=== PATIENT | female | born 1950 | race Asian ===

== ENCOUNTER → 2023-09-08 12:54 | Outpatient (REF) | payer MEDICARE, SELFPAY | LOC: MRI 3T 12:54 | PROVIDERS: ATTENDING PHYSICIAN Specialist; FAMILY PHYSICIAN Family Medicine | DX: M25.562 Pain in left knee (principal) | CPT/HCPCS: 73721 ==

== ENCOUNTER 2025-02-10 10:34 | Outpatient (RCR) | payer MEDICARE, SELFPAY | END 2025-02-10 23:59 | disposition home or self-care (01) | LOC: RPT 10:34 | PROVIDERS: ATTENDING PHYSICIAN Emergency Medicine | DX: R42 Dizziness and giddiness (principal); Z73.6 Limitation of activities due to disability; R26.89 Other abnormalities of gait and mobility | CPT/HCPCS: 97112; 97162 ==

== ENCOUNTER 2025-02-25 11:49 | Outpatient (RCR) | payer MEDICARE, SELFPAY | END 2025-02-25 23:59 | disposition home or self-care (01) | LOC: RPT 11:49 | PROVIDERS: ATTENDING PHYSICIAN Emergency Medicine | DX: R42 Dizziness and giddiness (principal); Z73.6 Limitation of activities due to disability; R26.89 Other abnormalities of gait and mobility | CPT/HCPCS: 97112 ==

== ENCOUNTER 2025-03-08 11:20 | Emergency (ER) | payer MEDICARE, SELFPAY ==
[2025-03-08 11:27] VITALS: BP 179/91
[2025-03-08 11:51] LABS: Hematocrit 41.8 % (37.0-47.0); Hemoglobin 13.7 g/dL (12.0-16.0); Mean Corp Hgb Conc. 32.8 g/dL (33.0-37.0); Mean Corpuscular Volume 85.3 fL (81.0-99.0); Nucleated Red Blood Cells % 0 %; Platelet Count 278 10^3/uL (130-400); Red Cell Dist. Width 12.8 % (11.5-14.5)
[2025-03-08 12:10] LABS: ALT (SGPT) 18 U/L (0-35); AST (SGOT) 25 U/L (14-36); Albumin 4.7 g/dl (3.5-5.0); Alkaline Phosphatase 53 U/L (38-126); Blood Urea Nitrogen 22 mg/dl (7-17); Calcium 10.1 mg/dl (8.4-10.2); Carbon Dioxide 30 mmol/L (22-30); Chloride 105 mmol/L (98-107); Glucose 176 mg/dl (70-99); Potassium 4.5 mmol/L (3.5-5.1); Sodium 142 mmol/L (135-145); Total Protein 7.9 g/dl (6.3-8.2); eGFR > 60.00
[2025-03-08 12:19] LABS: Troponin I < 0.012 ng/ml
[2025-03-08 13:15] VITALS: BP 153/82
[2025-03-08 14:13] VITALS: BMI 24.0
[2025-03-08 14:16] VITALS: BP 128/79
[2025-03-08 15:00] VITALS: BP 123/76
[2025-03-08 15:31] LABS: Troponin I < 0.012 ng/ml
--- NOTE | 2025-03-08 15:33 | ED.GENMED ---
History of Present Illness
General
Chief Complaint: Chest Pain
Source: patient
Time Seen by Provider: 03/08/25 13:20
History of Present Illness
History of Present Illness:
74-year-old female with past medical history of vertigo presents to the emergency department for evaluation after she was driving with her to wall off her coffee this morning when she felt a sensation in her throat/chest described to be
little bit tightening, lasting for 'a little while' but currently asymptomatic. No other symptoms were associated and patient states she has never had this before. She denies any fevers or recent illnesses, no shortness of breath, no diaphoresis,
no pleurisy or hemoptysis, no abdominal pain, nausea or vomiting. Patient did not take anything for her symptoms prior to arrival. She denies any known cardiac history. Social history and family history were noncontributory.
Past History
Past History
ED Past Medical History: None
ED Past Surgical History: None
Social History
Tobacco: Non-smoker
Alcohol: None
Drug: None
Personal:
Living: with family
Review of Systems
Review of Systems
All Other Systems: ROS reviewed and negative except as documented in HPI and ROS
Phy Exam
Physical Exam
Physical Exam:
GENERAL: Alert , in no apparent distress
EYE: conjunctiva clear
NECK: Supple
ENT: o/p clr, mmm.
CARDIAC: Regular rate and rhythm
LUNGS: Clear breath sounds bilaterally, no acute respiratory distress, no wheezes/rales/rhonchi
ABDOMEN: Soft, nontender, nondistended
NEUROLOGICAL: Alert and oriented
SKIN: Warm and dry, skin intact.
MUSCULOSKELETAL: well perfused.
PSYCH: Normal and appropriate interaction.
Scores
Heart Failure Risk
Heart Failure Risk Score: Not Applicable
Heart Score for Chest Pain Patients
STEMI patient?: No
History: Slightly or Non-Suspicious
ECG: Normal
Age: >/= 65 years
Risk Factors: No Risk Factors
Troponin: </= Normal Limit
Heart Score for Chest Pain Patients: 2
Heart Score Risk: 2.5% MACE over next 6 weeks
Withdrawal Assessment of Alcohol
Withdrawal Assessment Completed?: Not applicable
Course
Orders/Labs/Results
Orders:
Orders
03/08/25 11:30
Electrocardiogram (*1) Urgent
Reason for Study: Chest Pain
EKG- Treatment ONCE
03/08/25 11:40
Complete Blood Count/With Diff Urgent
Comprehensive Metabolic Panel Urgent
Troponin I Urgent
03/08/25 13:20
CR Chest - 2 Views Urgent
Comment:
Reason For Exam: chest pain
03/08/25 14:32
Troponin I Urgent
Abnormal Lab Results
03/08/25
11:40
MCHC 32.8 L g/dL
(33.0-37.0)
BUN 22 H mg/dl
(7-17)
Glucose 176 H mg/dl
(70-99)
03/08/25 11:40
03/08/25 11:40
Vital Signs
Initial and Last Documented VS:
Initial Vital Signs
Temp Pulse Resp BP Pulse Ox
97.9 F 74 18 179/91 98
03/08/25 11:27 03/08/25 11:27 03/08/25 11:27 03/08/25 11:27 03/08/25 11:27
Last Documented Vital Signs
Temp Pulse Resp BP Pulse Ox
97.9 F 68 17 123/76 98
03/08/25 11:27 03/08/25 15:00 03/08/25 15:00 03/08/25 15:00 03/08/25 15:34
MDM/Problems Addressed
Differential Diagnosis Includes:
ACS/angina
PE
Aneurysm/dissection
Pneumonia
Viral syndrome
Anxiety
Hypertension
MDM/Problems Addressed:
74-year-old female, otherwise healthy presenting to the ER for evaluation of abnormal sensation in her throat/upper chest. Asymptomatic at time of my exam. Labs were initiated in triage which are reassuring and a negative troponin/nonischemic EKG.
Given lack of risk factors will obtain a repeat troponin and as long as patient remains chest pain-free and a negative second troponin I do believe it would be reasonable for patient to be discharged home with close follow-up via the chest pain
hotline. Patient and significant other are both in agreement with this plan.
*Radiology
Radiology exam reviewed: preliminary read by ED provider (Normal chest x-ray)
*Pulse Oximetry
SaO2: 98
Oxygen Mode of Delivery: Room air
Patient hypoxic: no
*EKG
Heart Rate: 86
Rate: normal
Rhythm: sinus arrhythmia
Interval: short RI
Ischemia: no ischemia
*Sports Medicine Trainer Interpretation
Rate: normal
Rhythm: sinus
*Critical Care Note
Total Time (30-74mins, 75-104mins- exclusive of procedures): Not Applicable
Patient Management
Escalation/DeEscalation of care consider admission/obs:
Repeat troponin negative. Patient remains chest pain-free. Stable for discharge home. Aware of return precautions to the ER.
ED Attending Note
-
Portions of this chart may have been created with voice recognition software.� Occasional wrong word or��sound alike� substitutions may have occurred due to the inherent limitations of voice recognition software.
Discharge Plan
Departure
Patient Disposition: Home (Routine Discharge)
Date of Disposition: 03/08/25
Time of Disposition: 15:33
Patient with high blood pressure during this ER visit?: Yes
Discharge Problem:
Chest pain
Instructions: Chest Pain DCA Follow Up
Prescriptions:
No Action
therapeutic multivitamin Tablet
1 tab PO DAILY
multivitamin with minerals Tablet
1 tab PO DAILY
olive leaf extract 250 mg Capsule
250 mg PO DAILY
turmeric 400 mg Capsule
400 mg PO DAILY
Referrals:
Bernardino Preston DO [Family Provider, Family Practice]
Interventions
Interventions:
*Risk Screen - Suicide Last Done: 03/08/25 11:27
*General Assessment Last Done: 03/08/25 14:13
*ED- Fall Risk Assessment Last Done: 03/08/25 14:13
*ED COVID-19 Vaccine History Last Done: 03/08/25 14:13
ED- Cardiac Assessment Last Done: 03/08/25 14:13
Discharge Date and Time
Print Language: LATVIAN
== END 2025-03-08 16:03 | disposition home or self-care (01) ==
LOC: EMR 11:20
PROVIDERS: Emergency Medicine; Physician Assistant Medical; EMERGENCY PHYSICIAN Student in an Organized Health Care Education/Training Program; FAMILY PHYSICIAN Family Medicine
DX: R07.9 Chest pain, unspecified (principal)
CPT/HCPCS: 99284; 71046; 80053; 84484; 85025; 93005

== ENCOUNTER → 2025-03-31 11:29 | Outpatient (REF) | payer MEDICARE, SELFPAY | LOC: HWRCS 11:29 | PROVIDERS: ATTENDING PHYSICIAN Internal Medicine Cardiovascular Disease; FAMILY PHYSICIAN Family Medicine | DX: R07.9 Chest pain, unspecified (principal) | CPT/HCPCS: 78452; 93017; A9500; J2785 ==

== ENCOUNTER → 2025-04-01 14:42 | Outpatient (REF) | payer MEDICARE, SELFPAY | LOC: RCS 14:42 | PROVIDERS: ATTENDING PHYSICIAN Internal Medicine Cardiovascular Disease; FAMILY PHYSICIAN Family Medicine | DX: R06.09 Other forms of dyspnea (principal) | CPT/HCPCS: 93306 ==

== ENCOUNTER → 2025-06-25 13:16 | Outpatient (REF) | payer MEDICARE, SELFPAY | LOC: WDC 13:16 | PROVIDERS: ATTENDING PHYSICIAN Surgery; FAMILY PHYSICIAN Family Medicine | DX: Z12.31 Encounter for screening mammogram for malignant neoplasm of breast (principal) | CPT/HCPCS: 77063; 77067 ==

== ENCOUNTER → 2025-07-08 09:12 | Outpatient (REF) | payer MEDICARE, SELFPAY | LOC: WDC 09:12 | PROVIDERS: ATTENDING PHYSICIAN Surgery; FAMILY PHYSICIAN Family Medicine | DX: R92.8 Other abnormal and inconclusive findings on diagnostic imaging of breast (principal) | CPT/HCPCS: 77065 ==

== ENCOUNTER → 2025-07-18 06:45 | Outpatient (REF) | payer MEDICARE, SELFPAY ==
--- NOTE | 2025-07-18 09:40 | OID.BR.INTR ---
[facility] Breast Navigator - Initial
- -
Did not meet patient at time of biopsy. Will follow up per protocol.
== END ==
LOC: WDC 06:45
PROVIDERS: ATTENDING PHYSICIAN Surgery; FAMILY PHYSICIAN Family Medicine
DX: R92.8 Other abnormal and inconclusive findings on diagnostic imaging of breast (principal)
CPT/HCPCS: 19081; 76098; 88305; A4648